=== PATIENT | female | born 1980 | race Caucasian/White ===

== ENCOUNTER 2021-11-11 19:11 | Emergency (ER) | payer SELFPAY ==
[~2021-11-11] VITALS: Ht 154.9 cm; Wt 139.7 kg
[~2021-11-11 19:11] MED LIST: ASPI-1205 PO; CEPH-588 PO; DEXA6TAB8 PO; HUM SUBQ; LEVEMIR SUBQ; METF-1253 PO
[2021-11-11 19:20] VITALS: BP 132/90
--- NOTE | 2021-11-11 19:38 | NUR ---
Blood for labwork drawn per bottling line operator. Patient tolerated well.
--- NOTE | 2021-11-11 19:40 | NUR ---
Urine sample collected and sent to lab.
[2021-11-11 19:49] LABS: BASOPHILS % (AUTO) 0.3 % (0.0-2.0); EOSINOPHILS # (AUTO) 0.1 K/uL (0-0.4); EOSINOPHILS % (AUTO) 1.3 % (0.0-4.0); HEMATOCRIT 41.9 % (36-48); HEMOGLOBIN 14.1 g/dL (12.0-16.0); LYMPHOCYTES # (AUTO) 3.3 K/uL (2.5-16.5); LYMPHOCYTES % (AUTO) 32.9 % (20.5-51.1); MEAN CORPUSCULAR HEMOGLOBIN 28 pg (27-31); MEAN CORPUSCULAR HGB CONC 34 g/dL (33-37); MEAN CORPUSCULAR VOLUME 84.2 fL (80-94); MONOCYTES # (AUTO) 0.5 K/uL (0.8-1.0); NEUTROPHILS % (AUTO) 60.5 % (42.2-75.2); PLATELET COUNT (AUTO) 198 K/uL (140-450); RED BLOOD CELL COUNT(AUTO) 4.98 MIL/uL (4.20-5.40); RED CELL DISTRIBUTION WIDTH 13.7 % (11.6-13.7); WHITE BLOOD COUNT (AUTO) 9.9 K/uL (4.8-10.8)
--- NOTE | 2021-11-11 20:05 | NUR ---
Dr. Kessler examining patient.
[2021-11-11] MEDS ORDERED: KETOROLAC 30 MG/ML VIAL IM ONE (20:25)
--- NOTE | 2021-11-11 20:37 | NUR ---
Patient ambulated to 8.
[2021-11-11 20:41] LABS: ALBUMIN 3.4 g/dL (3.4-5.0); ANION GAP 11.3 (8-16); CARBON DIOXIDE 30.7 mmol/L (21-32); CREATININE 0.8 mg/dL (0.6-1.3); TOTAL BILIRUBIN 0.7 mg/dL (0.0-1.0)
--- NOTE | 2021-11-11 21:00 | NUR ---
41/F BIB SELF FROM HOME C/C LEFT SHARP EPIGASTRIC PAIN 10/29 X3 DAYS. PER PATIENT EXACEBATES WITH MOVEMENT. PATIETN DENEIS TAKING PAIN MEDS PRIOR TO ARRIVAL. STATED SHE TOOL TYL YESTERDAY. REPORTS"FEELING TIRED". DENIES SOB/N/V/C/D/VISUAL CHANGES. PATIENT IS AAOX4 AND AMBULATORY. RR EVEN AND UNLABORED. DOESNT APPEAR TO BE IN DUISTRESS. PLACED IN GOWN IN ROOM. BED LOW AND LOCKED. SIDE RAIL X1 FOR SAFETY. ALL NEEDS MET PMHX DM MEDS KEITH GONG
[2021-11-11 21:14] LABS: APPEARANCE,URINE CLEAR (CLEAR); BILIRUBIN,URINE NEGATIVE (NEGATIVE); BLOOD, URINE NEGATIVE (NEGATIVE); COLOR,URINE YELLOW (YELLOW); LEUKOCYTE ESTERASE ,URINE NEGATIVE (NEGATIVE); NITRITE, URINE NEGATIVE (NEGATIVE); UGLUCOSE 3+ (NEGATIVE)
--- NOTE | 2021-11-11 21:15 | NUR ---
PAIN 7/10 IN EPIGASTRIC REGION. MEDICATED PER ORERS
[2021-11-11] MEDS ORDERED: DICYCLOMINE HCL LIQUID 20 MG, ALUMINUM HYD/MAG/SIMETHICONE 30 ML, LIDOCAINE VISCOUS 2% ... PO ONE ×3 (21:20)
[2021-11-11] MEDS ORDERED: NACL 0.9% 1,000 ML IV ONE (21:20)
[2021-11-11] MEDS ORDERED: INSULIN REGULAR, HUMAN 100 UNIT/ML VIAL SUBQ ONE (21:20)
[2021-11-11] MEDS ORDERED: DICYCLOMINE HCL LIQUID 10 MG/5 ML UDC ONE (21:31)
[2021-11-11] MEDS ORDERED: ALUMINUM HYD/MAG/SIMETHICONE 30 ML UDC ONE (21:31)
--- NOTE | 2021-11-11 21:50 | NUR ---
PATIENT STATED THAT PAIN FEEL BETTER 0/10 AT THIS TIME.
[2021-11-11] MEDS ORDERED: BLOOD GLUCOSE MONITORING 1 DEV DEV FS ONE (22:05)
[2021-11-11 22:49] LABS: RBC,URINE 0-5 /HPF (0-5); WBC,URINE 0-5 /HPF (0-5)
[2021-11-11 22:50] LABS: YEAST,URINE Moderate /HPF (None Seen)
[2021-11-11] MEDS ORDERED: FLUCONAZOLE 100 MG TAB PO ONE (23:40)
[2021-11-11] MEDS ORDERED: FAMO-90 PO (23:43)
--- NOTE | 2021-11-11 23:50 | NUR ---
BS TAKEN 326. MADE AWARE. ORDERS CARRIED OUT.
[2021-11-11] MEDS ORDERED: INSULIN LISPRO 100 UNITS/ML VIAL SUBQ ONE (23:55)
--- NOTE | 2021-11-12 00:39 | NUR ---
Patient being evaluated by physician at bedside.
[2021-11-12 01:02] VITALS: BP 126/89
--- NOTE | 2021-11-12 01:02 | NUR ---
Chart checked and completed.
--- NOTE | 2021-11-12 01:02 | NUR ---
Patient discharged with v/s stable. Written and verbal after care instructions given GASTRITIS AND TYP 2 DM and explained. Patient alert, oriented and verbalized understanding of instructions. Ambulatory with steady gait. All questions addressed prior to discharge. ID band removed. Patient advised to follow up with PMD. Rx of FAMOTIDINE given.
== END 2021-11-12 01:02 | disposition home or self-care (01) ==
LOC: MED 19:11
DX: E11.65 Type 2 diabetes mellitus with hyperglycemia (principal); K29.70 Gastritis, unspecified, without bleeding; Z79.4 Long term (current) use of insulin; Z79.899 Other long term (current) drug therapy
CPT/HCPCS: 36415; 71045; 80053; 81001; 81025; 82948; 83690; 84484; 85025; 93005; 96360; 96372; 99285; J1815; J1885; J7030

== ENCOUNTER 2022-02-10 21:17 | Emergency (ER) | payer MEDICAID ==
[~2022-02-10] VITALS: Ht 154.9 cm; Wt 140.6 kg
[~2022-02-10 21:17] MED LIST changes: +FAMO-90 PO
[2022-02-10 21:26] VITALS: BP 132/90
--- NOTE | 2022-02-10 21:29 | NUR ---
to lobby a/w bed ambulatory
--- NOTE | 2022-02-10 22:11 | NUR ---
PT TAKEN TO BED 3
--- NOTE | 2022-02-10 22:45 | NUR ---
RASHMI LOMBARDO AT BEDSIDE.
[2022-02-10] MEDS ORDERED: KETOROLAC 60 MG/2 ML VIAL IM ONE (22:50)
[2022-02-10] MEDS ORDERED: IBUP-2213 PO (23:04)
[2022-02-10] MEDS ORDERED: PRED20TA5 PO (23:04)
--- NOTE | 2022-02-10 23:27 | NUR ---
Patient discharged with v/s stable. Written and verbal after care instructions given and explained. Patient alert, oriented and verbalized understanding of instructions. Ambulatory with steady gait. All questions addressed prior to discharge. ID band removed. Patient advised to follow up with PMD. Rx of ibuprofen and deltasone given. Patient educated on indication of medication including possible reaction and side effects. Opportunity to ask questions provided and answered.
== END 2022-02-10 23:27 | disposition home or self-care (01) ==
LOC: MED 21:17
DX: J02.9 Acute pharyngitis, unspecified (principal); R05.9 Cough, unspecified; H92.03 Otalgia, bilateral; R50.9 Fever, unspecified; E11.9 Type 2 diabetes mellitus without complications; Z79.4 Long term (current) use of insulin; Z79.899 Other long term (current) drug therapy
CPT/HCPCS: 96372; 99283; J1885

== ENCOUNTER 2023-07-09 19:02 | Emergency (ER) | payer MEDICAID ==
[~2023-07-09] VITALS: Ht 154.9 cm; Wt 142.9 kg
[~2023-07-09 19:02] MED LIST changes: +IBUP-2213 PO; +PRED20TA5 PO
[2023-07-09 19:19] VITALS: BP 124/82; PULSE 106; RESP 18; TEMP 98.6; O2SAT 97
[2023-07-09] MEDS: KETOROLAC 30 MG/ML VIAL IM ONE (20:38)
[2023-07-09 20:41] LABS: BASOPHILS % (AUTO) 0.4 % (0.0-2.0); EOSINOPHILS # (AUTO) 0.3 K/uL (0-0.4); EOSINOPHILS % (AUTO) 2.5 % (0.0-4.0); HEMATOCRIT 38.3 % (36-48); HEMOGLOBIN 13.2 g/dL (12.0-16.0); LYMPHOCYTES # (AUTO) 3.3 K/uL (2.5-16.5); LYMPHOCYTES % (AUTO) 32.7 % (20.5-51.1); MEAN CORPUSCULAR HEMOGLOBIN 29 pg (27-31); MEAN CORPUSCULAR HGB CONC 35 g/dL (33-37); MEAN CORPUSCULAR VOLUME 85.3 fL (80-94); MONOCYTES # (AUTO) 0.5 K/uL (0.8-1.0); MONOCYTES % (AUTO) 4.9 % (1.7-9.3); NEUTROPHILS # (AUTO) 6.1 K/uL (1.8-7.7); NEUTROPHILS % (AUTO) 59.5 % (42.2-75.2); PLATELET COUNT (AUTO) 210 K/uL (140-450); RED BLOOD CELL COUNT(AUTO) 4.49 MIL/uL (4.20-5.40); RED CELL DISTRIBUTION WIDTH 14.2 % (11.6-13.7); WHITE BLOOD COUNT (AUTO) 10.2 K/uL (4.8-10.8)
[2023-07-09 21:05] LABS: APPEARANCE,URINE CLEAR (CLEAR); BILIRUBIN,URINE NEGATIVE (NEGATIVE); BLOOD, URINE 2+ (NEGATIVE); COLOR,URINE YELLOW (YELLOW); LEUKOCYTE ESTERASE ,URINE NEGATIVE (NEGATIVE); NITRITE, URINE NEGATIVE (NEGATIVE); PROTEIN,URINE NEGATIVE (NEGATIVE); UGLUCOSE NEGATIVE (NEGATIVE)
[2023-07-09 21:08] LABS: ALBUMIN 3.4 g/dL (3.4-5.0); BILIRUBIN,DIRECT 0.1 mg/dL (0.0-0.3); TOTAL BILIRUBIN 0.7 mg/dL (0.0-1.0); TOTAL PROTEIN, SERUM 7.1 g/dL (6.4-8.2)
[2023-07-09] MEDS ORDERED: CEPH250C16 PO (21:13)
[2023-07-09 21:21] LABS: ANION GAP 13.9 (8-16); CALCIUM 8.6 mg/dL (8.5-10.1); CARBON DIOXIDE 26.6 mmol/L (21-32); CREATININE 0.7 mg/dL (0.6-1.3); POTASSIUM 3.5 mmol/L (3.5-5.1)
== END 2023-07-09 21:18 | disposition home or self-care (01) ==
LOC: MED 19:02
DX: N30.00 Acute cystitis without hematuria (principal); E11.9 Type 2 diabetes mellitus without complications; Z79.4 Long term (current) use of insulin; Z79.899 Other long term (current) drug therapy
CPT/HCPCS: 36415; 80048; 80076; 81003; 81025; 85025; 96372; 99283; J1885